=== PATIENT | male | born 1995 | race Caucasian/White ===

== ENCOUNTER → 2020-05-20 15:50 | Outpatient (CLI) | payer BC, SELFPAY ==
--- NOTE | ~2020-05-20 | US_ITS ---
EXAMINATION: US scrotum doppler DATE: 05/20/2020 16:17 INDICATION: Testicular pain, unspecified TECHNIQUE: Testicular sonogram utilizing grayscale and Doppler COMPARISON: None. FINDINGS: The right testis measures 4.8 x 2.9 x 3.6 cm. The left testis measures 4.9 x 2.9 x 3.7 cm. There is normal vascular flow to both testes. The right epididymis is normal with normal vascular sherine w. The left epididymis contains a 12 mm cyst or a hematocele. Moderate size right and small left hydr oceles are noted. IMPRESSION: 1. Moderate size right and small left hydroceles. Reviewed, dictated and finalized at location A.
== END ==
PROVIDERS: Visit Provider Physician Assistant
DX: N50.819 Testicular pain, unspecified (principal); N43.3 Hydrocele, unspecified
CPT/HCPCS: 76870; 93976